=== PATIENT | female | born 1995 | race Caucasian/White ===

== ENCOUNTER 2016-12-08 11:51 | Emergency (ER) | payer BC ==
[2016-12-08 12:51] VITALS: BP 116/51; PULSE 90; TEMP 98.5; BMI 22.8
--- NOTE | 2016-12-08 13:14 | PDOC ---
History of Present Illness - General Chief Complaint: Vaginal Bleeding Stated Complaint: VAGINAL BLEEDING () Time Seen by Provider: 12/08/16 12:55 History Source: Patient - History of Present Illness Timing/Duration: reports: constant Past History - Past Medical History Allergies/Adverse Reactions: Allergies Allergy/AdvReac Type Severity Reaction Status Date / Time No Known Allergies Allergy Verified 12/08/16 12:51 - Suicide/Smoking/Psychosocial Hx Smoking History: Never smoked Information on smoking cessation initiated: No Hx Alcohol Use: Yes Drug/Substance Use Hx: No Review of Systems - Review of Systems Constitutional: No: Chills, Fever ABD/GI: Yes: Abdominal cramping. No: Nausea, Vomiting : No: Dysuria, Flank Pain, Hematuria *Physical Exam - Vital Signs Last Vital Signs Temp Pulse Resp BP Pulse Ox 98.5 F 90 20 116/51 100 12/08/16 12:35 12/08/16 12:35 12/08/16 12:35 12/08/16 12:35 12/08/16 12:35 - Physical Exam General Appearance: Yes: Appropriately Dressed. No: Apparent Distress HEENT: positive: Normal Voice Neck: positive: Supple Respiratory/Chest: negative: Respiratory Distress Female Pelvic Exam: positive: normal external exam, cervical os closed, normal adnexa, vaginal bleeding (trace brown discharge). negative: CMT Gastrointestinal/Abdominal: positive: Soft. negative: Tender Musculoskeletal: negative: CVA Tenderness Integumentary: positive: Dry, Warm Neurologic: positive: Fully Oriented, Alert, Normal Mood/Affect ED Treatment Course - RADIOLOGY Radiology Studies Ordered: Category Date Time Status TRANSVAGINAL US PREG [US] Stat Ultrasound 12/08/16 13:11 Ordered Medical Decision Making - Medical Decision Making 12/08/16 13:11 21-year-old female, (1 spon ab and 1 elec AB), approximately 11-12 weeks by dates, has had care in [place] with + IUP with heart rate demonstrated on ultrasound as per patient, now living in [place] and currently does not have any INTELLIGENCE MANAGER here, presents with vaginal bleeding since last night. States bleeding was significant, but no clots. Also complaining of vague lower abdominal cramping. No dysuria, nausea, vomiting, fever or chills. No truama See exam 1st trimester bleed w/ IUP w/ FHR demonstrated on US > 1 month ago in [facility] Stable w/ benign abd and trace brown discharge in vault, os closed R/o spon AB -beta -T&S -US 12/08/16 13:21 12/08/16 16:00 US read as IUP c/w 8 weeks but w/ no cardiac activity, c/w demise. Also seen is small subchorionic hemorrhage. Beta >13K, O+ on T&S. No s/o infxn in urine. Pt informed and given copy of report. I contacted Dr. Willis of INTELLIGENCE MANAGER who states patient should walk into clinic on Sunday for follow-up 12/08/16 16:24 *DC/Admit/Observation/Transfer Diagnosis at time of Disposition: demise - Discharge Dispostion Disposition: HOME Condition at time of disposition: Stable - Patient Instructions Additional Instructions: It appears that your fetus is not exhibiting any cardiac activity at this time, which most likely means demise and that your will not progress. Your beta was 13,707 today. Your blood type is O+. Please follow-up with Dr. Cook of INTELL[facility] MANAGER on Sunday between 10 AM and 2 PM located at [address] [place] [address], [id number]. For any questions or directions call [phone]
--- NOTE | 2016-12-08 14:03 | PDOC ---
*Physical Exam - Vital Signs Last Vital Signs Temp Pulse Resp BP Pulse Ox 98.5 F 90 20 116/51 100 12/08/16 12:35 12/08/16 12:35 12/08/16 12:35 12/08/16 12:35 12/08/16 12:35 Medical Decision Making - Medical Decision Making 12/08/16 13:59 21 yo F currently at about 10 or 11 weeks here with vaginal bleeding. started yesterday. slightly more than spotting. bright red. but less than period. no clots or passing of tissue. no abd pain. has had us in past at which time she was 8 weeks. on exam awake alert abd soft NT. alert oriented x 3. skin warm and dry plan: r/o miscarriage vs. threatened or incomplete ab. plan bedside us, labs reassess. 12/08/16 14:01 bedside transabdominal us performed to evaluate well being heart not detected. crown rump lenth 8 wks plus 2 days. impression: demise. pt seen and examined, in conjunction with GIOVANNY Fonseca, agree with her assessment and plan. *DC/Admit/Observation/Transfer Diagnosis at time of Disposition: demise
[2016-12-08 16:11] LABS: PH,URINE 6.5 (5.0-8.0); URINE APPEARANCE SL CLOUDY; URINE BILIRUBIN NEGATIVE (NEGATIVE); URINE BLOOD 1+ (NEGATIVE); URINE COLOR LT. YELLOW; URINE GLUCOSE (UA) NEGATIVE (NEGATIVE); URINE KETONE TRACE (NEGATIVE); URINE LEUK ESTERASE NEGATIVE (NEGATIVE); URINE NITRITE NEGATIVE (NEGATIVE); URINE PROTEIN NEGATIVE (NEGATIVE); URINE UROBILINOGEN 0.2 mg/dL (0.2-1.0)
[2016-12-08 16:33] LABS: URINE MUCUS RARE; URINE RBC 1 /hpf (0-3); URINE WBC 2 /hpf (3-5)
== END 2016-12-08 16:24 | disposition home or self-care (01) ==
LOC: JER 11:51
DX: O26.891 Other specified pregnancy related conditions, first trimester (principal); O02.1 Missed abortion; Z3A.01 Less than 8 weeks gestation of pregnancy
CPT/HCPCS: 36415; 76817-TC; 81003; 81015; 84702; 86850; 86900; 86901; 99281-25

== ENCOUNTER 2016-12-12 07:58 | Day surgery (SDC) | payer BC ==
[2016-12-11 14:39] VITALS: BMI 22.6
[2016-12-12] MEDS ORDERED: ceFAZolin SODIUM 1 GM VIAL IVPB ONE (08:26)
--- NOTE | 2016-12-12 09:12 | HP ---
Admitting History and Physical - Admission Chief Complaint: Vaginal spotting in History of Present Illness: 21 yo , LMP 08/2016, is pre op for suction D&C. She was diagnosed with Missed . History Source: Patient Limitations to Obtaining History: No Limitations - Past Medical History ...LMP: 08/17/16 ...: Yes (MISCARRIAGE) - Past Surgical History Past Surgical History: Yes: None - Smoking History Smoking history: Never smoked Have you smoked in the past 12 months: No - Alcohol/Substance Use Hx Alcohol Use: No - Social History History of Recent Travel: No Home Medications - Allergies Allergies/Adverse Reactions: Allergies Allergy/AdvReac Type Severity Reaction Status Date / Time No Known Allergies Allergy Verified 12/12/16 08:37 - Home Medications Home Medications: Ambulatory Orders Acetaminophen [Tylenol -] 500 mg PO Q4H 12/11/16 Ibuprofen/Diphenhydramine HCl [Advil Pm Liqui-Gels] 1 each PO PRN PRN 12/11/16 Family Disease History - Family Disease History Family History: Unremarkable Review of Systems - Review of Systems Constitutional: reports: No Symptoms Eyes: reports: No Symptoms HENT: reports: No Symptoms Neck: reports: No Symptoms Cardiovascular: reports: No Symptoms Respiratory: reports: No Symptoms Gastrointestinal: reports: No Symptoms Genitourinary: reports: Vaginal Bleeding Breasts: reports: No Symptoms Reported Musculoskeletal: reports: No Symptoms Integumentary: reports: No Symptoms Neurological: reports: No Symptoms Endocrine: reports: No Symptoms Psychiatric: reports: No Symptoms Pain Intensity: 3 Physical Examination Vital Signs: Vital Signs Temperature 98.4 F 12/12/16 08:33 Pulse Rate 73 12/12/16 08:33 Respiratory Rate 20 12/12/16 08:33 Blood Pressure 112/63 12/12/16 08:33 O2 Sat by Pulse Oximetry (%) 99 12/12/16 08:32 Constitutional: Yes: Well Nourished Eyes: Yes: Conjunctiva Clear HENT: Yes: Atraumatic Neck: Yes: Supple, Trachea Midline Cardiovascular: Yes: Regular Rate and Rhythm Respiratory: Yes: Regular, CTA Bilaterally Gastrointestinal: Yes: Normal Bowel Sounds Neurological: Yes: Alert, Oriented ...Motor Strength: WNL Psychiatric: Yes: Alert, Oriented Problem List - Problems (1) Missed Code(s): O02.1 - MISSED Assessment/Plan Missed AB Pre op for suction D&C Consent signed Anesthesia to see patient
--- NOTE | 2016-12-12 09:13 | OP ---
Operative Note - Note: Operative Date: 12/12/16 Pre-Operative Diagnosis: Missed Operation: Suction D&C Findings: Product of conception Post-Operative Diagnosis: Same as Pre-op Surgeon: Anna Marie Cook Anesthesia: General Specimens Removed: Product of conception Estimated Blood Loss (mls): 50 Operative Report Dictated: Yes
[2016-12-12] MEDS ORDERED: MIDAZOLAM HCL 2 MG/2 ML SINGLE DOSE VIAL ONE (09:47)
[2016-12-12] MEDS ORDERED: PROPOFOL 20 ML ONE (10:04)
[2016-12-12] MEDS ORDERED: KETOROLAC TROMETHAMINE 30 MG/1 ML VIAL ONE (10:06)
[2016-12-12] MEDS ORDERED: ONDANSETRON 4 MG/2 ML VIAL IVPUSH PRN (10:09)
[2016-12-12] MEDS ORDERED: oxyCODONE HCL 5 MG TABLET PO PRN ×2 (10:09)
[2016-12-12] MEDS ORDERED: LACTATED RINGERS SOLUTION 1,000 ML IV SCH (10:15)
[2016-12-12 10:44] VITALS: TEMP 98.6
[2016-12-12 14:42] VITALS: BP 107/57; PULSE 68
--- NOTE | 2016-12-13 07:45 | OP ---
DATE OF OPERATION: 12/12/2016 PREOPERATIVE DIAGNOSIS: Missed . POSTOPERATIVE DIAGNOSIS: Missed . PROCEDURE PERFORMED: Suction dilatation and curettage. SURGEON: Anna Marie Cook M.D. ANESTHESIA: General. COMPLICATIONS: None. ESTIMATED BLOOD LOSS: 50 mL. DESCRIPTION OF PROCEDURE: The patient was taken to the operating room, where general anesthesia was administered. The patient was then placed in the lithotomy position. She was then prepped and draped in the proper sterile fashion. A weighted speculum was placed in the vagina. The anterior lip of the cervix was grasped with a single-tooth tenaculum. The cervical os was then sequentially dilated with Galdamez dilators. A 10-mm suction curette was then gently introduced into the uterine cavity. The suction curette was rotated to clear the uterus of all products of conception. Sharp curettage was then performed. The suction curette was reintroduced to clear the uterus of products of conception. There was a significant amount of bleeding noted and Pitocin was started. The bleeding subsequently subsided. The instruments were removed. The patient was taken out of the lithotomy position. She was taken to the PACU in stable condition. PATHOLOGY: Products of conception. John [id number]
--- NOTE | 2016-12-13 12:48 | PATH ---
Surgical Pathology Report Patient Name: ARNOLDO HOOD [facility]. Rec. #: [id number] /Age/Gender: 1995 (Age: 21) / F Account: [id number] Location: [facility] Taken: 12/12/2016 Received: 12/12/2016 Reported: 12/13/2016 Physicians: Anna Marie Cook M.D. Specimen(s) Received PRODUCTS OF CONCEPTION Clinical History Missed Final Diagnosis UTERINE CONTENTS, EVACUATION: CHORIONIC VILLI CONSISTENT WITH PRODUCTS OF CONCEPTION, AND PORTIONS OF DECIDUA. Electronically Signed Elier Meadows M.D. Gross Description Received in formalin labelled "products of conception" is a 10 x 10 x 2 cm aggregate of call tissue fragments and foamy material. No somatic tissue is grossly identified. No hydropic areas are grossly identified. A b2b outside sales representative portion is submitted in one cassette. [facility]/12/12/2016 [facility]/12/12/2016
== END 2016-12-12 13:30 | disposition home or self-care (01) ==
LOC: JASU-SURG 07:58
PROVIDERS: ATTEND Obstetrics & Gynecology
PROC: 10D17ZZ Extraction of Products of Conception, Retained, Via Natural or Artificial Opening (ICD-10-PCS; principal; 2016-12-12 09:30)
DX: O02.1 Missed abortion (principal)
CPT/HCPCS: 86850; 86900; 86901; 88305-TC; 94760